=== PATIENT | female | born 1965 | race Caucasian/White ===

== ENCOUNTER 2017-06-02 23:32 | Emergency (ER) | payer OTHER ==
[~2017-06-02] VITALS: Ht 157.5 cm; Wt 86.2 kg
[2017-06-02 23:39] VITALS: BP 136/89
--- NOTE | 2017-06-02 23:45 | ED GENERAL ADULT ---
History of Present Illness General Chief Complaint: Animal/Insect Bite Stated Complaint: "PER PT TICK ON RT FOOT" Source: patient Exam Limitations: no limitations Vital Signs & Intake/Output Vital Signs & Intake/Output Vital Signs Date Time Temp Pulse Resp B/P B/P Pulse O2 O2 Flow FiO2 Mean Ox Delivery Rate 06/02 2339 98.7 87 18 136/89 98 Room Air ED Intake and Output 06/03 0000 06/02 1200 Intake Total Output Total Balance Patient 190 lb Weight Weight Reported by Patient Measurement Method Allergies Coded Allergies: aspirin (NOSEBLEEDS 06/02/17) Reconcile Medications Mupirocin Calcium (Bactroban) 2 % CREAM..G. 1 NELI TOP TID ABRASION apply to affected area(s) Triage Note: PT TO ED C/O TICK BITE TO RT FOOT Triage Nurses Notes Reviewed? yes Onset: 2 Duration: day(s): (2) Timing: no prior history Injury Environment: home Severity: mild No Modifying Factors: none HPI: Patient is a 52-year-old female presenting to the emergency department with questionable lesion on the right foot. Patient reports she's been outside and noticed a black dot on her right foot. She noticed some swelling around it today so decided to come in for evaluation. Denies any fevers or chills nausea or vomiting. Denies any rashes. Unsure if she was bitten by a tick or if she injured her foot. ([address]) Past History Travel History Traveled to [place] past 21 day No Medical History Any Pertinent Medical History? see below for history Cardiovascular: hyperlipidemia Cancer(s): basal cell carcinoma Surgical History Surgical History: non-contributory Psychosocial History What is your primary language Pashto Tobacco Use: Never used ETOH Use: occasional use Illicit Drug Use: denies illicit drug use Family History Hx Contributory? No ([address]) Review of Systems Review of Systems Constitutional: Reports: no symptoms. Comments Review of systems: See HPI, All other systems negative. Constitutional, no chills fever or weight loss HEENT: No visual changes no sore throat no congestion Cardiovascular: No chest pain ,palpitation Skin, no jaundice Respiratory: No dyspnea cough sputum or hemoptysis GI: No nausea no vomiting : No dysuria No hematuria Muscle skeletal: no back pain, no neck pain, Neurologic: No numbness Immunology: Up-to-date with immunizations ([address]) Physical Exam Physical Exam General Appearance: well developed/nourished, no apparent distress, alert, awake , comfortable Comments: Well-developed well-nourished no apparent distress. HEENT: Atraumatic, extraocular motion intact Neck: Supple, no lymphadenopathy Back: Nontender Respiratory: No respiratory distress Extremities: No edema, full range of motion Skin: Small, oblong, flat lesion that is dark in color just distal to the lateral malleolus on the right lower extremity. Area is approximately 2 mm in size. Nontender. Neuro: Alert and oriented x3 Psych: Mood affect normal, normal memory normal judgment. Core Measures ACS in differential dx? No CVA/TIA Diagnosis: No Severe Sepsis Present: No Septic Shock Present: No ([address]) Progress Differential Diagnoses I considered the following diagnoses in my evaluation of the patient: Insect bite, cellulitis, abrasion Plan of Care: Area was cleaned with chlorhexidine, using 18-gauge needle was able to extract the lesion. It appears to be flat, skinlike. No signs of tick. Area was cleaned again with chlorhexidine and bacitracin placed. Initial ED EKG: none ([address]SE [address]) Departure Departure Time of Disposition: 2355 Disposition: HOME OR SELF CARE Condition: Stable Clinical Impression Primary Impression: Abrasion Additional Instructions: Follow-up with your primary care physician call TO MAKE appointment. is Bactroban as prescribed. Return for worsening symptoms or concerns. Departure Forms: Customer Survey General Discharge Information Prescriptions: Current Visit Scripts Mupirocin Calcium (Bactroban) 1 NELI TOP TID #30 GM apply to affected area(s) ([address]) PA/IMAGE PROCESSING ENGINEER Co-Sign Statement Statement: ED Attending supervision documentation- [] I saw and evaluated the patient. I have also reviewed all the pertinent lab results and diagnostic results. I agree with the findings and the plan of care as documented in the PA's/IMAGE PROCESSING ENGINEER's documentation. [x] I have reviewed the ED Record and agree with the PA's/IMAGE PROCESSING ENGINEER's documentation. [] Additions or exceptions (if any) to the PAs/IMAGE PROCESSING ENGINEER's note and plan are summarized below: [] (GURINDER DELACRUZ,ENRRIQUE Arizmendi) Critical Care Note Critical Care Note Critical Care Time: non-applicable (MELANIE LAWSON,JOSE ANGEL)
[2017-06-02] MEDS ORDERED: BACTROBAN15 GM TOP (23:57)
== END 2017-06-03 00:06 ==
LOC: ERH 23:32
DX: S90.861A Insect bite (nonvenomous), right foot, initial encounter (principal); W57.XXXA Bitten or stung by nonvenomous insect and other nonvenomous arthropods, initial encounter; Y92.9 Unspecified place or not applicable; Y93.9 Activity, unspecified